=== PATIENT | female | born 2000 | race Two or more races ===

== ENCOUNTER 2019-10-02 12:57 | Emergency (ER) | payer OTHER ==
[~2019-10-02] VITALS: Ht 152.4 cm; Wt 49.4 kg
[2019-10-02] MEDS ORDERED: PRENATA CHEWAB1 EACH (13:23)
== END 2019-10-02 17:50 | disposition home or self-care (01) ==
LOC: ER 12:57
DX: O21.0 Mild hyperemesis gravidarum (principal); Z3A.08 8 weeks gestation of pregnancy

== ENCOUNTER 2020-03-29 23:30 | Outpatient (CLI) | payer OTHER ==
[~2020-03-29 23:30] MED LIST: PRENATA CHEWAB1 EACH
== END 2020-03-30 13:15 | disposition home or self-care (01) ==
LOC: OBS/DEL 23:30
PROVIDERS: ATTEND Specialist
DX: O60.03 Preterm labor without delivery, third trimester (principal); Z20.828 Contact with and (suspected) exposure to other viral communicable diseases

== ENCOUNTER 2020-04-20 14:52 | Inpatient (IN) | payer OTHER ==
[~2020-04-20] VITALS: Ht 152.4 cm; Wt 61.2 kg
== END 2020-04-23 16:24 | disposition home or self-care (01) | DRG 807 ==
LOC: OBS/DEL 14:52 → LDR 23:45 → OB/GYN 23:45
PROVIDERS: ADMIT Specialist; ATTEND Specialist
PROC: BY4FZZZ Ultrasonography of Third Trimester, Single Fetus (ICD-10-PCS; 2020-04-20)
PROC: BU46ZZZ Ultrasonography of Uterus (ICD-10-PCS; 2020-04-20)
PROC: 4A1HXFZ Monitoring of Products of Conception, Cardiac Rhythm, External Approach (ICD-10-PCS; 2020-04-20)
PROC: 10E0XZZ Delivery of Products of Conception, External Approach (ICD-10-PCS; principal; 2020-04-21)
PROC: 4A1HXFZ Monitoring of Products of Conception, Cardiac Rhythm, External Approach (ICD-10-PCS; 2020-04-21)
DX: O80 Encounter for full-term uncomplicated delivery (principal); Z37.0 Single live birth; Z3A.37 37 weeks gestation of pregnancy; Z20.828 Contact with and (suspected) exposure to other viral communicable diseases